=== PATIENT | male | born 1985 | race Two or more races ===

== ENCOUNTER 2017-01-28 01:11 | Emergency (ER) | payer SELFPAY ==
[~2017-01-28] VITALS: Ht 177.8 cm; Wt 79.4 kg
[2017-01-28 01:30] VITALS: BP 147/86
[2017-01-28] MEDS ORDERED: Lidocaine 1% MPF 10mg/ml 5ml INJ ONE (01:45)
[2017-01-28] MEDS ORDERED: IBUPROFEN600 MG ORAL (02:01)
[2017-01-28 02:25] VITALS: BP 130/82
--- NOTE | 2017-01-28 02:54 | Emergency Room Report ---
History of Present Illness General Chief Complaint: Laceration Source: Patient Present Illness HPI Patient is a 31-year-old male who presented after having increased pain to his right index finger. The patient reportedly injured his right index finger on a car door. Patient is right-hand dominant and works as a chemical processing supervisor. He denies other locations of pain. The patient reported having pain to the distal tip of his finger. Injury occurred just prior to arrival. Allergies: Coded Allergies: AZITHROMYCIN (Verified Allergy, Unknown, 01/28/17) CEPHALOSPORINS (Verified Allergy, Unknown, 01/28/17) DOXYCYCLINE (Verified Allergy, Unknown, 01/28/17) SULFA (SULFONAMIDE ANTIBIOTICS) (Verified Allergy, Unknown, 01/28/17) Patient History Past Medical History: see triage record Reviewed Nursing Documentation: PMH: Agreed, PSxH: Agreed Nursing Documentation-PMH Past Medical History: No History, Except For Hx Asthma: Yes Review of Systems All Other Systems: negative except mentioned in HPI Physical Exam Vital Signs Date Time Temp Pulse Resp B/P Pulse Ox O2 Delivery O2 Flow Rate FiO2 01/28/17 01:22 98.4 107 16 147/86 99 Room Air General Appearance: well appearing, no apparent distress, alert, GCS 15, non- toxic Head: normocephalic, atraumatic ENT: hearing grossly normal, normal voice Neck: full range of motion, supple Respiratory: no respiratory distress, speaking full sentences Cardiovascular #1: normal inspection Gastrointestinal: normal inspection Musculoskeletal: normal inspection, no calf tenderness, swelling, other - right index finger laceration flap Neurologic: normal gait Psychiatric: mood/affect normal Skin: no rash, laceration - 0.5 cm flap Medical Decision Making Diagnostic Impression: Primary Impression: Nailbed laceration, finger ER Course Patient presented for laceration.Patient presented for laceration. Differential diagnoses included foreign body, nerve injury, arterial injury among others. X-ray imaging of the right hand 3 view interpreted by me showed normal bony alignment without fracture. The digital block was performed with lidocaine 1% 4 mL. Was absolutely cleansed and the flap was reduced to below nail bed. The laceration was left open. Patient was advised wound care. All questions are answered. The patient is advised to have wound rechecked in approximately 2 days Chest X-Ray Diagnostic Results Chest X-Ray Ordered: No Other X-Ray Diagnostic Results # of Views/Limited Vs Complete: 3 View Interpretation: no fractures, no dislocation, no soft tissue swelling Indication: Pain Impression: No acute disease Last Vital Signs Date Time Temp Pulse Resp B/P Pulse Ox O2 Delivery O2 Flow Rate FiO2 01/28/17 02:25 98.2 98 16 130/82 100 Room Air Status: improved Disposition: HOME, SELF-CARE Condition: Stable Scripts Ibuprofen* (MOTRIN*) 600 Mg Tablet 600 MG ORAL Q8H Y for For Pain, #30 TAB 0 Refills Prov: Zuhair Xiao 01/28/17 Patient Instructions: Nonsutured Laceration Care Zuhair Xiao Jan 28, 2017 02:54
--- NOTE | 2017-01-28 09:08 | Diagnostic Imaging Report ---
Indication: Pain Comparison: None Findings: 3 views of the right second digit of the hand obtained. No acute fracture, malalignment, erosions, periostitis, radiopaque foreign body identified. Impression: Negative examination
== END 2017-01-28 02:30 | disposition home or self-care (01) ==
LOC: EMR 02:27
DX: S61.310A Laceration without foreign body of right index finger with damage to nail, initial encounter (principal); W23.0XXA Caught, crushed, jammed, or pinched between moving objects, initial encounter; Y92.810 Car as the place of occurrence of the external cause; J45.909 Unspecified asthma, uncomplicated; Z88.2 Allergy status to sulfonamides; Z88.1 Allergy status to other antibiotic agents
CPT/HCPCS: 99283